=== PATIENT | female | born 1955 | race Caucasian/White ===

== ENCOUNTER 2024-01-05 07:38 | Outpatient (CLI) | payer BC, MEDICARE | END 2024-01-05 07:39 | disposition home or self-care (01) | LOC: BICULT 07:38 | PROVIDERS: ATTEND Internal Medicine Gastroenterology | DX: B19.20 Unspecified viral hepatitis C without hepatic coma (principal); K76.89 Other specified diseases of liver; K80.20 Calculus of gallbladder without cholecystitis without obstruction | CPT/HCPCS: 76705 ==

== ENCOUNTER 2024-01-20 07:36 | Outpatient (CLI) | payer BC, MEDICARE | END 2024-01-20 07:37 | disposition home or self-care (01) | LOC: SCSMRI 07:36 | PROVIDERS: ATTEND Internal Medicine Gastroenterology | DX: R16.0 Hepatomegaly, not elsewhere classified (principal) | CPT/HCPCS: 74183 ==

== ENCOUNTER 2024-05-25 07:42 | Outpatient (CLI) | payer BC, MEDICARE | END 2024-05-25 07:43 | disposition home or self-care (01) | LOC: SCSMRI 07:42 | PROVIDERS: ATTEND Internal Medicine | DX: K76.89 Other specified diseases of liver (principal) | CPT/HCPCS: 74183; 82565 ==